=== PATIENT | female | born 1960 | race Caucasian/White ===

== ENCOUNTER 2018-09-16 12:39 | Emergency (ER) | payer MEDICAID ==
[~2018-09-16] VITALS: Ht 160 cm; Wt 92.0 kg
[~2018-09-16 12:39] MED LIST: DOCU100C41 PO; LACT1CAP26 PO; PALI117D IM; QUET150T2 PO; QUET300T3 PO; ZOLP5TAB2 PO
[2018-09-16 13:44] LABS: BASOPHILS % (AUTO) 0.5 % (0-1); EOSINOPHILS # (AUTO) 0.1 X10'3 (0-0.9); EOSINOPHILS % (AUTO) 1.4 % (0-6); HEMATOCRIT 43.2 % (35.0-45.0); HEMOGLOBIN 14.4 g/dl (12.0-16.0); LYMPHOCYTES # (AUTO) 1.3 X10'3 (1.1-4.8); LYMPHOCYTES % (AUTO) 16.4 % (21-51); MEAN CORPUSCULAR HEMOGLOBIN 32.7 PG (27.0-31.0); MEAN CORPUSCULAR HGB CONC 33.3 % (33.0-36.5); MEAN CORPUSCULAR VOLUME 98.2 FL (78-98); MEAN PLATELET VOLUME 7.8 FL (7.4-10.4); MONOCYTES # (AUTO) 0.4 X10'3 (0-0.9); MONOCYTES % (AUTO) 4.9 % (2-12); NEUTROPHILS # (AUTO) 6.1 X10'3 (1.8-7.7); NEUTROPHILS % (AUTO) 76.8 % (42-75); PLATELET COUNT 345 X10'3 (140-440); RED CELL DISTRIBUTION WIDTH 13.4 % (11.5-14.5); WHITE BLOOD COUNT 7.9 X10'3 (4.5-11.0)
[2018-09-16 13:57] LABS: ALANINE AMINOTRANSFERASE 24 U/L (12-78); ALBUMIN 3.7 G/DL (3.4-5.0); ALBUMIN/GLOBULIN RATIO 0.9 (1.1-1.5); ALKALINE PHOSPHATASE 78 IU/L (46-116); ANION GAP 9 (8-16); ASPARTATE AMINO TRANSFERASE 14 U/L (10-37); BILIRUBIN,TOTAL 0.5 MG/DL (0.1-1.0); BLOOD UREA NITROGEN 9 MG/DL (7-18); BUN/CREATININE RATIO 14.8 (6.6-38.0); CALCIUM 8.9 MG/DL (8.5-10.1); CHLORIDE 106 MMOL/L (99-107); CREATININE 0.61 MG/DL (0.40-0.90); GLUCOSE 91 MG/DL (70-104); POTASSIUM 4.5 MMOL/L (3.5-5.1); SODIUM 140 MMOL/L (135-145); TOTAL CARBON DIOXIDE 25.5 MMOL/L (24-32); TOTAL PROTEIN 7.7 G/DL (6.4-8.2); eGFR > 90 ML/MIN
[2018-09-16 14:00] LABS: INR 1.1 INR; PARTIAL THROMBOPLASTIN TIME 26 SECONDS (22-32)
[2018-09-16 14:26] VITALS: BP 111/80
== END 2018-09-16 20:18 | disposition home or self-care (01) ==
LOC: ER 12:40
DX: R07.9 Chest pain, unspecified (principal); M79.601 Pain in right arm; Z79.899 Other long term (current) drug therapy
CPT/HCPCS: 36415; 71045; 80053; 84484; 85025; 85610; 85730; 93005; 99284

== ENCOUNTER 2021-05-09 14:50 | Emergency (ER) | payer MEDICAID ==
[~2021-05-09] VITALS: Ht 157.5 cm; Wt 54.5 kg
[~2021-05-09 14:50] MED LIST changes: -QUET300T3 PO; +QUET300T5 PO
--- NOTE | 2021-05-09 16:56 | NUR ---
Covering for break nurse in triage. Pt in pain 10/10, unable to pe or bm. Md Kat notified and in triage awith pt. VSS
--- NOTE | 2021-05-09 19:46 | NUR ---
16F OSORIO CATHETER PLACED, PT TOLERATED WELL, DRAINING TO GRAVITY.
[2021-05-09] MEDS ORDERED: magnesium hydroxide 30ml (MOM) UD suspension PO ONE (19:55)
[2021-05-09 20:40] LABS: CLARITY,URINE SLIGHTLY CLOUDY (Clear); COLOR,URINE YELLOW (Yellow); GLUCOSE, URINE NEGATIVE (Neg); KETONES,URINE NEGATIVE (Neg); LEUKOCYTE ESTERASE ,URINE TRACE (Neg); NITRITES, URINE POSITIVE (Neg); OCCULT BLOOD,URINE NEGATIVE (Neg); PH,URINE 6.5 (4.8-8.0); PROTEIN,URINE NEGATIVE (Neg); UROBILINOGEN,URINE 0.2 E.U/dL (0.2-1.0)
[2021-05-09 20:44] LABS: ALBUMIN 3.3 G/DL (3.4-5.0); ANION GAP 9 (8-16); BLOOD UREA NITROGEN 10 MG/DL (7-18); BUN/CREATININE RATIO 16.7 (6.6-38.0); CALCIUM 8.8 MG/DL (8.5-10.1); CHLORIDE 107 MMOL/L (99-107); GLUCOSE 99 MG/DL (70-104); POTASSIUM 3.1 MMOL/L (3.5-5.1); SODIUM 141 MMOL/L (135-145); TOTAL CARBON DIOXIDE 24.6 MMOL/L (24-32); eGFR > 90 ML/MIN
[2021-05-09 21:05] LABS: UA COLLECTION TYPE FOLEY CATH
[2021-05-09 21:13] LABS: BACTERIA,URINE 4+ /HPF (Neg); RBC,URINE NONE SEEN /HPF (0-2); SQUAMOUS EPITHELIAL CELL,UR NONE SEEN /LPF (FEW); WBC,URINE 0-4 /HPF (0-4)
--- NOTE | 2021-05-09 22:11 | NUR ---
DR MCBRIDE ADVISED TO TRY A DIFFERENT KIND OF ENEMA, VERBAL ORDER FOR SUGAR SODA ENEMA PUT IN.
--- NOTE | 2021-05-09 22:12 | NUR ---
PT ONLY ABLE TO TOLERATE 30CC OF INITIAL ENEMA ATTEMPT. DR. MCBRIDE ATTEMPTED DIGITAL IMPACTION WITH MINIMAL SUCCESS. SMALL AMOUNT OF STOOL IN COMMODE.
[2021-05-09] MEDS ORDERED: CefTRIAXone 1000mg IM Kit (w/lidocaine diluent) IM ONE (22:25)
[2021-05-09] MEDS ORDERED: POLY17PO10 PO (22:26)
[2021-05-09] MEDS ORDERED: CEFD300C3 PO (22:26)
[2021-05-09] MEDS ORDERED: potassium Cl 20 mEq SR tablet PO STA (22:28)
[2021-05-09 23:06] LABS: HEMOGLOBIN 12.5 g/dl (12.0-16.0); WHITE BLOOD COUNT 8.7 X10'3 (4.5-11.0)
[2021-05-09 23:07] LABS: BASOPHILS % (AUTO) 0.3 % (0-1); EOSINOPHILS % (AUTO) 0.4 % (0-6); HEMATOCRIT 35.9 % (35.0-45.0); LYMPHOCYTES # (AUTO) 1.4 X10'3 (1.1-4.8); LYMPHOCYTES % (AUTO) 15.9 % (21-51); MEAN CORPUSCULAR HEMOGLOBIN 34.6 PG (27.0-31.0); MEAN CORPUSCULAR HGB CONC 34.7 g/dL (33.0-36.5); MEAN PLATELET VOLUME 8.8 FL (7.4-10.4); MONOCYTES # (AUTO) 0.7 X10'3 (0-0.9); MONOCYTES % (AUTO) 7.9 % (2-12); NEUTROPHILS # (AUTO) 6.6 X10'3 (1.8-7.7); NEUTROPHILS % (AUTO) 75.5 % (42-75); PLATELET COUNT 252 X10'3 (140-440); RED CELL DISTRIBUTION WIDTH 14.9 % (11.5-14.5)
[2021-05-09 23:12] LABS: ALANINE AMINOTRANSFERASE 15 U/L (12-78); ALBUMIN/GLOBULIN RATIO 0.9 (1.1-1.5); ALKALINE PHOSPHATASE 71 IU/L (46-116); ASPARTATE AMINO TRANSFERASE 10 U/L (10-37); BILIRUBIN,DIRECT 0.2 MG/DL (0-0.3); BILIRUBIN,TOTAL 1.1 MG/DL (0.1-1.0); LIPASE 64 U/L (73-393); TOTAL PROTEIN 6.8 G/DL (6.4-8.2)
[2021-05-10 03:14] VITALS: BP 100/52
== END 2021-05-10 03:23 | disposition home or self-care (01) ==
LOC: ER 14:51
DX: K59.00 Constipation, unspecified (principal); N39.0 Urinary tract infection, site not specified; R33.9 Retention of urine, unspecified; R10.32 Left lower quadrant pain; F41.9 Anxiety disorder, unspecified; F20.9 Schizophrenia, unspecified; Z87.440 Personal history of urinary (tract) infections; Z79.2 Long term (current) use of antibiotics; Z79.899 Other long term (current) drug therapy
CPT/HCPCS: 36415; 51702; 74176; 80048; 80076; 81001; 83690; 85025; 87077; 87088; 87186; 96372; 99285; J0696

== ENCOUNTER 2025-08-01 08:00 | Emergency (ER) | payer MEDICAID ==
[~2025-08-01] VITALS: Ht 157.5 cm; Wt 73.9 kg
[2025-08-01 08:02] VITALS: BP 137/81; PULSE 74; RESP 17; TEMP 97.6; O2SAT 97
[2025-08-01] MEDS ORDERED: AMOX-580 PO (09:16)
--- NOTE | 2025-08-01 09:17 | Physician Documentation ---
HPI ~ General Chief Complaint: Tooth Problem Stated Complaint: TOOTH PAIN Time Seen by MD: 09:06 OK to notify your PCP?: Yes Source: patient Mode of Arrival: POV Exam Limitations: no limitations History of Present Illness HPI Comment 64-year-old female who is here due to left lower dental pain which started a week ago. She states the pain is worse with any chewing and even drinking water. She states when she drinks water she has to make sure that the water stays on the right side of her mouth as it will cause severe sharp pain. She states the pain radiates into the jaw. She reports she has a known bad left lower molar and did get an appointment with the dentist but states it will not be until October of next year when they can get her in. No pre arrival treatment. She is hoping she can get some antibiotics. No ear pain, sore throat, chest pain, shortness of breath, fever, chills, headache. Medication Reconciliation Allergies: Coded Allergies: No Known Allergies (Unverified , 08/01/25) Scheduled Docusate Sodium (Docusate Sodium), 1 CAP PO DAILY, (Reported) Lactobacillus Rhamnosus (Culturelle), 10,000 MMU PO BIDWM Paliperidone Palmitate (Invega Sustenna), 0.75 ML IM Q30D, (Reported) Quetiapine Fumarate (Seroquel Xr), 1 TAB PO HS, (Reported) Quetiapine Fumarate (Seroquel Xr), 1 TAB PO HS, (Reported) Zolpidem Tartrate (Ambien), 1 TAB PO HSPRN, (Reported) Past Medical History Past Medical History: No Pertinent History, Constipation, UTI, Anxiety, Schizophrenia Past Surgical History: noncontributory Alcohol Use: None Drug Use: none Review of Systems All Other Systems at this time: Reviewed and Negative Physical Exam Vital Signs: Temperature: 97.6, Source: Oral, Heart Rate: 74, Respiratory Rate: 17, BP: 137/81, Pulse Oximetry: 97, Weight: 73.900 General Appearance General Appearance: Alert, WD/WN. NAD. HEENT: NCAT, PERRL, EOMI. No facial swelling, left lower back molar about 60% avulsion the remainder of the tooth is carious. Molar immediately in front of this molar is missing. Gingiva is mildly tender but no fluctuance, erythema, edema. Neck: Supple, trachea midline. No cervical lymphadenopathy. Cardiovascular: RRR. No m/r/g. Lungs: CTAB. Breathing unlabored Extremities: Normal inspection. No edema. Skin: Warm/dry, normal color Neurological: Alert and oriented x4, normal gait. Psychiatric: Affect congruent with mood. Progress Results/Orders Results/Orders Vital Signs 08/01/25 08:02 Temp 97.6 Pulse 74 Resp 17 B/P (MAP) 137/81 Pulse Ox 97 Medical Decision Making Differential Dx:Considerations: Include: Alveolar fracture, Alveolar osteitis, ANUG, Facial Cellulitis, Periapical abscess, Peridontal abscess, Post-extraction bleeding, Pulpitis, Tooth avulsion, Tooth eruption, Tooth Fracture, Trigeminal neuralgia, Tooth subluxation Departure Time of Disposition: 09:15 Disposition: HOME / SELF CARE / HOMELESS Impression: Primary Impression: Pain, dental Additional Impression: Dental caries noted on examination Condition: Stable Discharge Instructions: Dental Caries, Adult, Dental Pain Additional Instructions: Antibiotic sent to pharmacy, saltwater rinses, Motrin and/or tylenol for pain Referrals: NO PRIMARY CARE PROVIDER (PCP) Prescriptions Amox Tr/Potassium Clavulanate 875/125 MG (Augmentin 875/125 MG) 875 Mg-125 Mg Tablet 1 TAB PO Q12H for 10 Days, #20 TAB Prov: CARMELINA WATERS 08/01/25 Education Educated: Patient Educated regarding: diagnosis, treatment, need for follow up Signature Scribe Signature: x Attestation: CARMELINA Albarran Aug 01, 2025 09:17
== END 2025-08-01 09:23 | disposition home or self-care (01) ==
LOC: ER 08:01
DX: K02.9 Dental caries, unspecified (principal); F41.9 Anxiety disorder, unspecified; F20.9 Schizophrenia, unspecified; Z79.899 Other long term (current) drug therapy
CPT/HCPCS: 99283